=== PATIENT | male | born 1970 | race Caucasian/White ===

== ENCOUNTER 2021-11-24 14:41 | Inpatient (IN) | payer MEDICAID ==
[~2021-11-24] VITALS: Ht 185.4 cm; Wt 112.1 kg
[2021-11-24 15:05] LABS: HEMOGLOBIN 11.9 gm/dl (14.0-17.5); RED BLOOD COUNT 4.49 M/UL (4.20-5.50); WHITE BLOOD COUNT 7.3 K/UL (4.5-11.0)
[2021-11-24 15:31] LABS: BUN/CREATININE RATIO 18 (0-10)
--- NOTE | 2021-11-24 22:53 | NUR ---
PT DIDNT BRING HOME MED BOTTLES TO HOSPITAL. PHARMACY TO COMPLETE HOME MED REC IN AM. WILL CONTINUE TO MONITOR.
[2021-11-25 02:26] LABS: HEMOGLOBIN 11.8 gm/dl (14.0-17.5); RED BLOOD COUNT 4.51 M/UL (4.20-5.50); WHITE BLOOD COUNT 6.1 K/UL (4.5-11.0)
[2021-11-25 03:05] LABS: BUN/CREATININE RATIO 22 (0-10)
--- NOTE | 2021-11-25 10:51 | NUR ---
Per Dr. Infante, titrate patients O2 until no longer needed.
[2021-11-26 02:53] LABS: HEMOGLOBIN 11.5 gm/dl (14.0-17.5); RED BLOOD COUNT 4.35 M/UL (4.20-5.50)
[2021-11-26 02:55] LABS: WHITE BLOOD COUNT 10.2 K/UL (4.5-11.0)
[2021-11-26 03:16] LABS: BUN/CREATININE RATIO 28 (0-10)
[2021-11-27 03:33] LABS: HEMOGLOBIN 11.8 gm/dl (14.0-17.5); RED BLOOD COUNT 4.34 M/UL (4.20-5.50); WHITE BLOOD COUNT 8.8 K/UL (4.5-11.0)
[2021-11-27 03:53] LABS: BUN/CREATININE RATIO 30 (0-10)
--- NOTE | 2021-11-27 09:26 | NUR ---
PT WAS ANGRY AND REQUESTED TO LEAVE AMA. MD WAS NOTIFED. NURSE AND MD EDUCATED THE PT ON THE CERTAIN DANGERS OF LEAVING AMA WITHOUT HEART CATH INTERVENTIONS. PT IS A&OX3 AND STATES HE UNDERSTANDS THE SERIOUSNESS OF THE SITUATION, BUT IS STILL GONG TO LEAVE. PT SIGNED AMA PAPERS AND AMBULATED OUT. TYPE CASTER NOTIFED.
== END 2021-11-27 09:16 | disposition left against medical advice (07) | DRG 291 ==
LOC: ER1 14:41 → M/S 19:25 → CDU 19:25 → M/S 20:17
PROVIDERS: Emergency Medicine; Physician Assistant; ADMIT Internal Medicine
PROC: B24BZZZ Ultrasonography of Heart with Aorta (ICD-10-PCS; principal; 2021-11-25)
DX: I11.0 Hypertensive heart disease with heart failure (principal); I50.41 Acute combined systolic (congestive) and diastolic (congestive) heart failure; J96.01 Acute respiratory failure with hypoxia; R65.10 Systemic inflammatory response syndrome (SIRS) of non-infectious origin without acute organ dysfunction; Z20.822 Contact with and (suspected) exposure to COVID-19; I42.9 Cardiomyopathy, unspecified; F17.210 Nicotine dependence, cigarettes, uncomplicated; F19.10 Other psychoactive substance abuse, uncomplicated; E87.6 Hypokalemia; I08.1 Rheumatic disorders of both mitral and tricuspid valves; D64.9 Anemia, unspecified; Z96.698 Presence of other orthopedic joint implants; F15.19 Other stimulant abuse with unspecified stimulant-induced disorder; Z83.3 Family history of diabetes mellitus; Z98.890 Other specified postprocedural states; Z82.49 Family history of ischemic heart disease and other diseases of the circulatory system
CPT/HCPCS: ECHO; 0240U; 36415; 36600; 71045; 80048; 80053; 80061; 80307; 81001; 82550; 82553; 82728; 82803; 83036; 83540; 83550; 83605; 83735; 83880; 84132; 84439; 84443; 84484; 85025; 85379; 87040; 93005; 93306; 94664; 94760; 96374; 96375; 99285; G0480; J0360; J0696; J1200; J1940; J2930; Q9967

== ENCOUNTER → 2022-01-03 | Outpatient (CLI) | payer OTHER ==
[~2022-01-03] MED LIST: LASIX20 MG PO; LOPRESSOR 25 MG25 MG PO; TOPROL XL 50 MG50 MG PO; VAZALORE81 MG PO; ZESTRIL5 MG PO
[2022-01-03 07:10] LABS: HEMOGLOBIN 11.5 gm/dl (14.0-17.5); RED BLOOD COUNT 4.42 M/UL (4.20-5.50); WHITE BLOOD COUNT 5.6 K/UL (4.5-11.0)
[2022-01-03 07:35] LABS: BUN/CREATININE RATIO 17 (0-10)
== END | disposition home or self-care (01) ==
LOC: CATH 06:27
PROVIDERS: Internal Medicine Cardiovascular Disease
DX: I42.8 Other cardiomyopathies (principal); I25.10 Atherosclerotic heart disease of native coronary artery without angina pectoris; I11.0 Hypertensive heart disease with heart failure; I50.22 Chronic systolic (congestive) heart failure; F17.210 Nicotine dependence, cigarettes, uncomplicated; F41.9 Anxiety disorder, unspecified; Z79.899 Other long term (current) drug therapy; Z79.82 Long term (current) use of aspirin
CPT/HCPCS: 71045; 80048; 85025; 85610; 93005; 99152; 99153; C1769; C1887; C1894; J1644; J2250; J3010; Q9967

== ENCOUNTER → 2022-02-06 | Outpatient (CLI) | payer OTHER | LOC: KOH-I 08:00 | DX: R14.0 Abdominal distension (gaseous) (principal); J90 Pleural effusion, not elsewhere classified; M79.89 Other specified soft tissue disorders | CPT/HCPCS: 76700; 93971 ==